=== PATIENT | female | born 1990 | race Caucasian/White ===

== ENCOUNTER 2018-07-12 14:32 | Emergency (ER) | payer MEDICAID ==
[~2018-07-12] VITALS: Ht 152.4 cm; Wt 76.7 kg
[2018-07-12 15:13] VITALS: Ht 152.4 cm; Wt 76.7 kg
[2018-07-12 16:45] VITALS: BP 129/71
== END 2018-07-12 16:45 | disposition home or self-care (01) ==
LOC: ED 14:32
DX: S61.411A Laceration without foreign body of right hand, initial encounter (principal); W45.8XXA Other foreign body or object entering through skin, initial encounter; Y93.89 Activity, other specified; Y92.89 Other specified places as the place of occurrence of the external cause; Y99.8 Other external cause status
CPT/HCPCS: 90715

== ENCOUNTER 2018-07-15 15:32 | Emergency (ER) | payer MEDICAID ==
[~2018-07-15] VITALS: Ht 162.6 cm; Wt 77.1 kg
[2018-07-15 15:43] VITALS: Ht 162.6 cm; Wt 77.1 kg
[2018-07-15 17:35] VITALS: BP 104/59
== END 2018-07-15 17:35 | disposition home or self-care (01) ==
LOC: ED 15:32
DX: S61.411D Laceration without foreign body of right hand, subsequent encounter (principal); X58.XXXD Exposure to other specified factors, subsequent encounter

== ENCOUNTER 2018-07-20 07:47 | Emergency (ER) | payer MEDICAID ==
[~2018-07-20] VITALS: Ht 157.5 cm; Wt 76.7 kg
[2018-07-20 08:01] VITALS: BP 118/77; Ht 157.5 cm; Wt 76.7 kg
== END 2018-07-20 08:45 | disposition home or self-care (01) ==
LOC: ED 07:47
DX: S61.411D Laceration without foreign body of right hand, subsequent encounter (principal); X58.XXXD Exposure to other specified factors, subsequent encounter